=== PATIENT | female | born 1945 | race African-American/Black ===

== ENCOUNTER 2017-08-27 12:04 | Inpatient (IN) | payer MEDICARE, BC ==
[2017-08-27] MEDS: PANTOPRAZOLE 40 MG TABLET.DR. PO (07:30)
[2017-08-27 12:36] LABS: ADD MAN DIFF? NO
[2017-08-27 12:39] LABS: BASO % 1 % (0-3); EOS # 0.1 x10^3/uL (0.0-0.7); EOS % 1 % (0-3); HEMATOCRIT 37.5 % (36.0-47.0); HEMOGLOBIN 12.8 g/dL (12.0-15.5); LYMPH # 1.3 x10^3/uL (1.0-4.8); LYMPH % 18 % (24-48); MEAN CORPUSCULAR HEMOGLOBIN 31 pg (25-35); MEAN CORPUSCULAR HGB CONC 34 g/dL (31-37); MEAN CORPUSCULAR VOLUME 91 fL (79-100); MONO # 0.4 x10^3/uL (0.0-1.1); MONO % 6 % (0-9); NEUT # 5.6 x10^3uL (1.8-7.7); NEUT % 76 % (31-73); PLATELET COUNT 153 x10^3/uL (140-400); RED CELL DISTRIBUTION WIDTH 15.4 % (11.5-14.5); WHITE BLOOD COUNT 7.4 x10^3/uL (4.0-11.0)
[2017-08-27 12:42] LABS: BILIRUBIN,URINE NEGATIVE (NEG); CLARITY,URINE CLEAR; COLOR,URINE YELLOW; GLUCOSE,URINE NEGATIVE (NEG); NITRITE,URINE NEGATIVE (NEG); PH,URINE 6.5; PROTEIN,URINE NEGATIVE (NEG-TRACE)
[2017-08-27] MEDS: IV NORMAL SALINE 1000ML BAG 1,000 ML IV ×2 (12:44→15:56)
[2017-08-27 12:58] LABS: SQUAMOUS EPITHELIAL CELL,UR MOD /LPF
[2017-08-27 12:59] LABS: BACTERIA,URINE FEW /HPF (0-FEW); WBC,URINE OCC /HPF (0-4)
[2017-08-27 13:58] LABS: ANION GAP 14 (6-14); BLOOD UREA NITROGEN 14 mg/dL (7-20); BUN/CREATININE RATIO 16 (6-20); CALCIUM 10.7 mg/dL (8.5-10.1); CARBON DIOXIDE 17 mmol/L (21-32); CHLORIDE 91 mmol/L (98-107); CREATININE 0.9 mg/dL (0.6-1.0); GFR 74.5; GLUCOSE 81 mg/dL (70-99); POTASSIUM 3.4 mmol/L (3.5-5.1); SODIUM 122 mmol/L (136-145)
[2017-08-27 14:04] LABS: ALBUMIN 3.2 g/dL (3.4-5.0); ALBUMIN/GLOBULIN RATIO 0.7 (1.0-1.7); ALK PHOS 92 U/L (46-116); ALT (SGPT) 12 U/L (14-59); AST (SGOT) 21 U/L (15-37); TOTAL BILIRUBIN 0.6 mg/dL (0.2-1.0); TOTAL PROTEIN 8.1 g/dL (6.4-8.2)
[2017-08-27 14:05] LABS: LIPASE < 10 U/L (73-393)
[2017-08-27] MEDS: IOHEXOL 300 MG/ML 100ML VIAL. IV (14:16)
[2017-08-27] MEDS: CONTRAST GIVEN. MC (14:17)
[2017-08-27] MEDS ORDERED: BENZOCAINE/MENTHOL LOZENGE. PO (20:30)
[2017-08-27] MEDS ORDERED: SALIVA STIMULANT AGENT 44ML SPRAY BOTTLE. PO ×2 (20:30→21:30)
[2017-08-27] MEDS: POTASSIUM CL 40MEQ IN 0.9%NACL 1,000 ML IV (21:02)
[2017-08-27 21:13] LABS: ANION GAP 9 (6-14); BLOOD UREA NITROGEN 13 mg/dL (7-20); CALCIUM 9.2 mg/dL (8.5-10.1); CARBON DIOXIDE 26 mmol/L (21-32); CHLORIDE 106 mmol/L (98-107); CREATININE 0.8 mg/dL (0.6-1.0); GFR 85.3; GLUCOSE 90 mg/dL (70-99); MAGNESIUM 1.8 mg/dL (1.8-2.4); POTASSIUM 3.7 mmol/L (3.5-5.1); SODIUM 141 mmol/L (136-145)
[2017-08-27 21:14] LABS: IONIZED CALCIUM 1.33 mmol/L (1.13-1.32)
[2017-08-27] MEDS: POTASSIUM CL 20MEQ D5-0.45NACL 1,000 ML IV (22:51)
[2017-08-28 04:47] LABS: ADD MAN DIFF? NO
[2017-08-28 05:00] LABS: BASO % 1 % (0-3); EOS # 0.1 x10^3/uL (0.0-0.7); EOS % 1 % (0-3); HEMATOCRIT 31.3 % (36.0-47.0); HEMOGLOBIN 10.7 g/dL (12.0-15.5); LYMPH # 1.5 x10^3/uL (1.0-4.8); LYMPH % 34 % (24-48); MEAN CORPUSCULAR HEMOGLOBIN 31 pg (25-35); MEAN CORPUSCULAR HGB CONC 34 g/dL (31-37); MEAN CORPUSCULAR VOLUME 91 fL (79-100); MONO # 0.3 x10^3/uL (0.0-1.1); MONO % 7 % (0-9); NEUT # 2.5 x10^3uL (1.8-7.7); NEUT % 57 % (31-73); PLATELET COUNT 132 x10^3/uL (140-400); RED BLOOD COUNT 3.43 x10^6/uL (3.50-5.40); RED CELL DISTRIBUTION WIDTH 14.7 % (11.5-14.5); WHITE BLOOD COUNT 4.4 x10^3/uL (4.0-11.0)
[2017-08-28 05:12] LABS: ALBUMIN/GLOBULIN RATIO 0.9 (1.0-1.7); ALK PHOS 76 U/L (46-116); ALT (SGPT) 11 U/L (14-59); ANION GAP 7 (6-14); AST (SGOT) 14 U/L (15-37); BLOOD UREA NITROGEN 10 mg/dL (7-20); BUN/CREATININE RATIO 11 (6-20); CALCIUM 9.6 mg/dL (8.5-10.1); CARBON DIOXIDE 26 mmol/L (21-32); CHLORIDE 106 mmol/L (98-107); CREATININE 0.9 mg/dL (0.6-1.0); GFR 74.5; GLUCOSE 103 mg/dL (70-99); POTASSIUM 3.6 mmol/L (3.5-5.1); SODIUM 139 mmol/L (136-145); TOTAL BILIRUBIN 0.6 mg/dL (0.2-1.0); TOTAL PROTEIN 6.3 g/dL (6.4-8.2)
[2017-08-28] MEDS: LEVOTHYROXINE 112 MCG TABLET PO (05:53)
[2017-08-28] MEDS: PANTOPRAZOLE 40 MG TABLET.DR. PO ×2 (07:30→14:20)
[2017-08-28] MEDS: KETOROLAC 15 MG/ML VIAL. IV (08:57)
[2017-08-28] MEDS: OMEGA-3 FATTY ACIDS/FISH OIL 1,000 MG CAPSULE. PO (09:00)
[2017-08-28] MEDS: MULTIVITAMIN with MINERAL TABLET. PO (09:00)
[2017-08-28] MEDS: IV NORMAL SALINE 1000ML BAG 1,000 ML IV ×2 (09:00→22:37)
[2017-08-28] MEDS: CYCLOBENZAPRINE 10 MG TABLET. PO (09:00)
[2017-08-28] MEDS ORDERED: oxyCODONE/APAP 5/325 1 TAB TABLET PO (10:45)
[2017-08-28] MEDS ORDERED: ACETAMINOPHEN 500 MG TABLET PO (10:45)
[2017-08-28] MEDS ORDERED: IBUPROFEN 600 MG TABLET. PO (10:45)
[2017-08-28] MEDS ORDERED: ACETAMINOPHEN 325 MG TABLET. PO (11:45)
[2017-08-28] MEDS: ACETAMINOPHEN 325 MG TABLET. PO (11:53)
[2017-08-29] MEDS: LEVOTHYROXINE 112 MCG TABLET PO (05:52)
[2017-08-29] MEDS: PANTOPRAZOLE 40 MG TABLET.DR. PO (08:41)
[2017-08-29] MEDS: OMEGA-3 FATTY ACIDS/FISH OIL 1,000 MG CAPSULE. PO (08:41)
[2017-08-29] MEDS: MULTIVITAMIN with MINERAL TABLET. PO (08:41)
[2017-08-29] MEDS: CYCLOBENZAPRINE 10 MG TABLET. PO (08:42)
[2017-08-29] MEDS: IV NORMAL SALINE 1000ML BAG 1,000 ML IV (08:42)
[2017-09-01 15:25] LABS: URINE OSMOLALITY 670 mOsmol/kg (.)
== END 2017-08-29 17:11 | disposition home or self-care (01) | DRG 389 ==
LOC: ER 12:04 → 5 SOUTH 16:00
PROVIDERS: Internal Medicine
DX: K56.600 Partial intestinal obstruction, unspecified as to cause (principal); E87.1 Hypo-osmolality and hyponatremia; N39.0 Urinary tract infection, site not specified; E03.9 Hypothyroidism, unspecified; E83.52 Hypercalcemia; E87.6 Hypokalemia; I10 Essential (primary) hypertension; K21.9 Gastro-esophageal reflux disease without esophagitis; Z79.899 Other long term (current) drug therapy; Z90.710 Acquired absence of both cervix and uterus; Z88.5 Allergy status to narcotic agent; M19.90 Unspecified osteoarthritis, unspecified site; M54.5 Low back pain
CPT/HCPCS: 36415; 74018; 74177; 80048; 80053; 81001; 82310; 82570; 83690; 83735; 83935; 84300; 85025; 87086; 96360; 96361; 99285; 99285-25; J1885; J3480; J7030; Q9967

== ENCOUNTER → 2019-03-18 | Outpatient (CLI) | payer MEDICARE, BC ==
[2018-03-23 11:00] VITALS: BP 138/72
[~2019-03-18] MED LIST: ACET325T9 PO; ASPI-253 PO; CELE200C PO; CYCL10TA2 PO; DOXY100T PO; DULO60CA6 PO; ESTR0.5T PO; FAMO20TA5 PO; FLUT16SP NS; HYDR-2761 PO; LEVO100T5 PO; LEVO112T4 PO; METO5TAB55 PO; MULT1TAB77 PO; OMEG1CAP27 PO; OMEP-229 PO; OMEP40CA45 PO; POLY17PO28 PO; POTA20TA4 PO; PROM12.58 PO; REGADENOSON 0.4 MG/5 ML DISP.SYRIN. IV ONE; VITA200C PO; vitamin d 3 PO
--- NOTE | 2019-03-18 11:28 | RAD ---
MR#: [id number] Date of Study: 03/18/2019 Ordering Physician: BAKARI CRUZ, Referring Physician: AMADA SOSA Tech: RT Camila Brar) (N) APPROVED REPORT Test Type: Pharmacological Stress Nurse/Tech: Lara Smith RN Test Indications: Abnormal EKG,dyspnea Cardiac History: No known cardiac Medications: See Electronic Medical Record Medical History: See Electronic Medical Record Resting ECG: SR with BBB Resting Heart Rate: 62 bpm Resting Blood Pressure: 140/75mmHg Pretest Chest Pain: No chest pain Nurse/Tech Notes S1,S2 and lungs clear to auscultation. Bilateral lower extremities edematous. Consent: The procedure was explained to the patient in lay terms. Informed consent was witnessed. Erick eout was entered into [employer]. History and Stress Test performed by RT Maykel (Halle) (N) Pharm. Details Pharmacologic stress testing was performed using 0.4mg per 5ml of regadenoson given intravenously ove r 7-10 seconds. Stress Symptoms Dyspnea POST EXERCISE Reason for Termination: Infusion complete Target HR: No Max HR: 88 bpm Max Blood Pressure: 137/74mmHg Blood Pressure response to exercise: Normal blood pressure response during stress. Heart Rate response to exercise: WNL Chest Pain: No. Arrhythmia: No. ST Change: No. INTERPRETATION Stress EKG Conclusion: Baseline EKG showed sinus rhythm with RBBB. No ischemic changes at peak stres s. No arrhythmias. Imaging Protocol IMAGE PROTOCOL: Rest Tc-99m/stress Tc-99m 1 day Rest: Stress: Viability: Radiopharm.Tc99m [id number] Sestamibi Dose10.8mCi 31.8mCi Duration 13min. 13min. Img Date 03/18/2019 03/18/2019 Inj-Img [id number]. 60min. Rest Admin Site:IV - Left WristAdministrator:RT Camila Brar)(N) Stress Admin Site: IV - Left WristAdministrator: RT Camila Brar)(N) STRESS DATA End Diast. Vol.78.0mlLVEDV index BSA38.0ml End Syst. Vol.17.0mlLVESV index BSA8.0ml Myocardial Civt143.0gEject. Xlxpkiro52.0% Stress Scores Regional WT0.00Summed WT0.00 Regional WM0.00Summed WM0.00 Study quality was good. Left Ventricular size was Normal at Rest and Stress. Lung uptake was . Left Ventricular ejection fraction is 78%. The rest and stress images show normal perfusion, normal contraction and thickening. LV Perf. Quant 17 Seg. SSS0.00 17 Seg. SRS0.00 17 Seg. SDS0.00 Stress Defect Extent (% LAD)0.00Rest Defect Extent (% LAD)0.00Rev. Defect Extent (% LAD)0.00 Stress Defect Extent (% LCX) 0.00Rest Defect Extent (% LCX)0.00Rev. Defect Extent (% LCX)0.00 Stress Defect Extent (% RCA)0.00Rest Defect Extent (% RCA)0.00Rev. Defect Extent (% RCA)0.00 Stress Defect Extent (% SHAAN)0.00Rest Defect Extent (% SHAAN)0.00Rev. Defect Extent (% SHAAN)0.00 Conclusion 1. Regadenoson cardioisotope stress test did not show any evidence of ischemia or infarct. 2. Normal left ventricular systolic function with ejection fraction calculated at 78%. 3. Low risk for cardiac events. Signed by : Con Veronica, Electronically Approved : 03/18/2019 11:28:32
== END | disposition home or self-care (01) ==
LOC: NM 10:29
PROVIDERS: ATTEND Internal Medicine Cardiovascular Disease
DX: I45.4 Nonspecific intraventricular block (principal); R94.31 Abnormal electrocardiogram [ECG] [EKG]; R06.00 Dyspnea, unspecified
CPT/HCPCS: 78452; 93017; A9500; J2785

== ENCOUNTER → 2020-07-17 | Outpatient (CLI) | payer MEDICARE, BC ==
[2020-01-20 15:00] VITALS: BP 128/70
[~2020-07-17] MED LIST changes: +CALC500T54 PO; +CHOL400T55 PO; +CYAN-25 PO; +ESCI10TA90 PO; +FAMO40TA4 PO; +FERR-36 PO; +FLUT9.9S NS; +FURO20TA3 PO; +HYDR12.58 PO; -LEVO112T4 PO; +LEVO112T49 PO; +LORA10TA3 PO; +MELO15TA23 PO; +MELO7.5T29 PO; -OMEP-229 PO; +OMEP20CA16 PO; +ONDA-84 PO; -POLY17PO28 PO; +POLY17PO52 PO; +POTA10TA PO; -REGADENOSON 0.4 MG/5 ML DISP.SYRIN. IV ONE; +[UNRECOGNIZED DRUG - CODE] PO; +diclofenac gel TOP
[2020-07-17 14:02] LABS: BASO % 1 % (0-3); EOS # 0.1 x10^3/uL (0.0-0.7); EOS % 2 % (0-3); HEMATOCRIT 32.8 % (36.0-47.0); HEMOGLOBIN 10.9 g/dL (12.0-15.5); LYMPH # 1.6 x10^3/uL (1.0-4.8); LYMPH % 26 % (24-48); MEAN CORPUSCULAR HEMOGLOBIN 31 pg (25-35); MEAN CORPUSCULAR HGB CONC 33 g/dL (31-37); MEAN CORPUSCULAR VOLUME 92 fL (79-100); MONO # 0.3 x10^3/uL (0.0-1.1); MONO % 5 % (0-9); NEUT # 4.2 x10^3/uL (1.8-7.7); NEUT % 67 % (31-73); PLATELET COUNT 129 x10^3/uL (140-400); RED BLOOD COUNT 3.57 x10^6/uL (3.50-5.40); RED CELL DISTRIBUTION WIDTH 16.9 % (11.5-14.5); WHITE BLOOD COUNT 6.3 x10^3/uL (4.0-11.0)
[2020-07-17 14:17] LABS: CALCIUM 9.4 mg/dL (8.5-10.1); CREATININE 1.1 mg/dL (0.6-1.0); GFR 58.6; POTASSIUM 3.8 mmol/L (3.5-5.1)
== END ==
LOC: LAB 12:06
PROVIDERS: ATTEND Surgery
DX: Z01.812 Encounter for preprocedural laboratory examination (principal); K43.2 Incisional hernia without obstruction or gangrene; Z20.822 Contact with and (suspected) exposure to COVID-19
CPT/HCPCS: 80048; 85025; U0003; U0005

== ENCOUNTER 2020-07-20 09:04 | Day surgery (SDC) | payer MEDICARE, BC ==
[~2020-07-20] VITALS: Ht 170.2 cm; Wt 83.0 kg
[~2020-07-20 09:04] MED LIST changes: +ACETAMINOPHEN 500 MG TABLET PO PRN; +IV RINGERS,LACTATED 1000ML 1,000 ML IV SCH; +PROCHLORPERAZINE 10 MG/2 ML VIAL. IVP PRN; +SCOPOLAMINE 1.5MG PATCH. TD SCH; +fentaNYL PF VIAL 100 MCG/2 ML VIAL IVP PRN
[2020-07-20] MEDS ORDERED: DEXAMETHASONE SOD PHOS 4 MG/ML VIAL ONE (09:12)
[2020-07-20] MEDS ORDERED: fentaNYL PF VIAL 100 MCG/2 ML VIAL ONE (09:12)
[2020-07-20] MEDS ORDERED: ONDANSETRON PF 4 MG/2 ML VIAL. ONE (09:12)
[2020-07-20] MEDS ORDERED: LIDOCAINE 2% PF 5 ML VIAL. ONE (09:12)
[2020-07-20] MEDS ORDERED: PROPOFOL 10 MG/ML (20ML) VIAL. IV ONE (09:12)
[2020-07-20] MEDS ORDERED: SEVOFLURANE 61 TO 120 MINUTES. IH ONE (09:13)
[2020-07-20] MEDS ORDERED: ROCURONIUM 50 MG/5 ML VIAL. ONE (09:16)
[2020-07-20] MEDS ORDERED: BUPIVACAINE-EPI 0.25% 30 ML VIAL KIT. ONE (09:51)
[2020-07-20] MEDS ORDERED: PHENYLEPHRINE in 0.9% NACL PF 1 MG/10 ML SYRINGE. IV ONE (10:34)
[2020-07-20] MEDS ORDERED: ePHEDrine PF IN SALINE 50 MG/10 ML SYRINGE. IV ONE (10:34)
[2020-07-20] MEDS ORDERED: GLYCOPYRROLATE 1 MG/5 ML VIAL. ONE (11:49)
[2020-07-20] MEDS ORDERED: NEOSTIGMINE METHYLSULFATE 5 MG/5 ML SYRINGE. ONE (11:49)
--- NOTE | 2020-07-20 11:55 | PDOC4 ---
Operative Note Operative Note Date: July 202020 at 1151 Preoperative diagnosis: Ventral incisional hernia Postoperative diagnosis: Same Procedure: Robotic assisted laparoscopic ventral hernia repair with mesh Surgeon: Brayan Specimen: None Dictation: Patient is a 74-year-old female who previously had a midline incision for small bowel resection returns with a incisional hernia at the superior portion of her incision. Procedure of robotic assisted laparoscopic incisional hernia repair with mesh was explained to the patient detail risk benefits were also discussed including bleeding infection injury to intra-abdominal contents possible necessitating further open operations alternatives to this procedure also discussed with patient who seemed to understand and gave both verbal and written consent to have the procedure performed. Patient was taken to the operating room placed in the supine position general anesthesia was initiated once patient was sleeping intubated her abdomen was prepped and draped usual sterile fashion using ChloraPrep. An area in the left upper quadrant was injected with quarter percent Marcaine with epinephrine incision was made 11 blade scalpel and a 5 mm Visiport was placed under direct visualization into the abdomen creating pneumoperitoneum once this was complete 5 mm camera was placed within the abdomen which was inspected there were few adhesions to the anterior abdominal wall but along the left lateral abdomen was clear a area in the left midabdomen was injected with quarter percent Marcaine with epinephrine incision made 11 blade scalpel and a 8 mm ventral port was placed under direct visualization similarly in the left lower quadrant a 8 mm da Torsten port was placed in the left upper 5 mm port was changed out for 8 mm da Torsten port. The da Torsten robot was brought and docked all port sites surgeon went to the robotic console using grasper and Endo Lucy scissors the edges of the fascia were cleared off the peritoneum. The fascia was then closed with a running 2 OV lock nonabsorbable suture. Ventral light ST mesh was then placed over the sutured fascia this was sewn into place with a running 2 OV lock absorbable suture circumferentially. Sutures and needles were removed from the abdomen the da [employer] robot was undocked from all port sites the ports were all removed the pneumoperitoneum reduced all port sites were closed with 4-0 subcuticular Monocryl Mastisol Steri-Strips and island dressings were applied. Patient was awakened and extubated in the operating room taken to recovery in stable condition all sponge instrument needle counts listed as correct estimated blood loss 10 mL LYRIC ANGLIN MD Jul 20, 2020 11:55
--- NOTE | 2020-07-20 11:57 | DISCH ---
DISCHARGE INSTRUCTIONS Condition on Discharge Condition on Discharge: Stable Activity After Discharge Activity Instructions for Disc: Avoid exertion, Other, see below Other activity instructions: No lifting more than 20 pounds for 2 weeks Lifting Instructions after Dis: No heavy lifting Exercise Instruction after Dis: Progress as tolerated Diet after Discharge Diet after Discharge: GI Soft Diet Texture: Regular Liquid Texture: Thin Liquid Swallowing Supervision: None needed Wound Incision Care Other wound/incision instructi: May shower in 24 hours Contacting the DRJairon after DC Call your doctor for: If your condition worsens Follow-Up Follow up with: Dr. Anglin in 2 weeks Treatment/Equipment after DC Adaptive Equipment Issued: None LYRIC ANGLIN MD Jul 20, 2020 11:57
[2020-07-20] MEDS ORDERED: OXYC1TAB15 PO (12:24)
[2020-07-20] MEDS ORDERED: oxyCODONE/APAP 5/325 1 TAB TABLET PO ONE (12:30)
[2020-07-20] MEDS ORDERED: MORPHINE SULFATE 2 MG/ML VIAL. ONE (12:55)
[2020-07-20] MEDS: MORPHINE SULFATE 2 MG/ML VIAL. IVP PRN ×2 (13:01→13:18)
[2020-07-20] MEDS ORDERED: HYDROmorphone 2 MG/ML VIAL ONE (13:06)
[2020-07-20] MEDS: HYDROmorphone 2 MG/ML VIAL IVP PRN ×3 (13:09→14:15)
[2020-07-20 13:50] VITALS: BP 102/58
== END 2020-07-20 14:25 | disposition home or self-care (01) ==
LOC: SURG 09:04
PROVIDERS: ATTEND Surgery
DX: K43.2 Incisional hernia without obstruction or gangrene (principal); E66.9 Obesity, unspecified; K21.9 Gastro-esophageal reflux disease without esophagitis; M19.90 Unspecified osteoarthritis, unspecified site; E03.9 Hypothyroidism, unspecified; F32.9 Major depressive disorder, single episode, unspecified; Z90.49 Acquired absence of other specified parts of digestive tract; Z90.710 Acquired absence of both cervix and uterus; Z98.890 Other specified postprocedural states; Z79.899 Other long term (current) drug therapy; Z88.5 Allergy status to narcotic agent; Z88.8 Allergy status to other drugs, medicaments and biological substances
CPT/HCPCS: 49654; A4364; A4930; A6219; C1781; J0690; J1100; J1170; J2270; J2370; J2405; J2704; J2710; J3010; J3490; A4657